=== PATIENT | female | born 1960 | race Caucasian/White ===

== ENCOUNTER → 2017-11-12 | Outpatient (CLI) | payer BC ==
--- NOTE | 2017-11-12 16:12 | KCIC ---
DATE: 11/12/2017 EXAM: MAMMO DAY SCREENING BILATERAL Bilateral digital screening mammography to include digital breast tomosynthesis (3D mammography) HISTORY: Screening study. COMPARISON: 12/07/2013 This study was interpreted with the benefit of Computerized Aided Detection (CAD). The breast parenchyma shows scattered fibroglandular densities. Breast parenchyma level B. FINDINGS: Digital MLO and CC mammograms of both breasts were obtained. Additionally digital breast tomosynthesis (3D mammography) images of both breasts in the MLO and CC projections were performed. Comparison study is dated 12/07/2013. The breast parenchyma is composed of scattered fibroglandular densities which can obscure a lesion on mammography (breast density code B). No spiculated mass is seen. No malignant appearing calcification or area of architectural distortion is noted. Benign-appearing calcifications are seen within both breasts. Digital breast tomosynthesis images demonstrate no spiculated mass or malignant appearing calcification. Since the previous examination there has been no significant interval change. IMPRESSION: BI-RADS Category 1, negative. There is no mammographic evidence of malignancy. Routine yearly screening mammography is recommended for follow-up. BI-RADS CATEGORY: 1 NEGATIVE RECOMMENDED FOLLOW-UP: 12M 12 MONTH FOLLOW-UP PQRS compliance statement: Patient information was entered into a reminder system with a target due date 11/12/2018 for the next mammogram. Mammography is a sensitive method for finding small breast cancers, but it does not detect them all and is not a substitute for careful clinical examination. A negative mammogram does not negate a clinically suspicious finding and should not result in delay in biopsying a clinically suspicious abnormality. "Our facility is accredited by the [employer] Mammography Program."
== END | disposition home or self-care (01) ==
LOC: KCIC MAMMO 10:59
PROVIDERS: ATTEND Internal Medicine
DX: Z12.31 Encounter for screening mammogram for malignant neoplasm of breast (principal)
CPT/HCPCS: 77063; G0202; 77067

== ENCOUNTER → 2018-06-21 | Outpatient (CLI) | payer BC | END | disposition home or self-care (01) | LOC: KCIC CT 14:02 | DX: R42 Dizziness and giddiness (principal); Z86.73 Personal history of transient ischemic attack (TIA), and cerebral infarction without residual deficits | CPT/HCPCS: 70450; 93880 ==

== ENCOUNTER 2018-07-08 03:03 | Inpatient (IN) | payer BC ==
[2018-07-08] VITALS (12 sets, daily range): BP systolic 109–139; BP diastolic 64–95
[~2018-07-08] VITALS: Ht 154.9 cm; Wt 64.0 kg
[2018-07-08 03:37] LABS: BASO % 0 % (0-3); EOS # 0.2 x10^3/uL (0.0-0.7); EOS % 2 % (0-3); HEMATOCRIT 35.6 % (36.0-47.0); HEMOGLOBIN 12.4 g/dL (12.0-15.5); LYMPH # 2.9 x10^3/uL (1.0-4.8); LYMPH % 39 % (24-48); MEAN CORPUSCULAR HEMOGLOBIN 31 pg (25-35); MEAN CORPUSCULAR HGB CONC 35 g/dL (31-37); MEAN CORPUSCULAR VOLUME 89 fL (79-100); MONO # 0.6 x10^3/uL (0.0-1.1); MONO % 8 % (0-9); NEUT # 3.7 x10^3uL (1.8-7.7); NEUT % 50 % (31-73); PLATELET COUNT 265 x10^3/uL (140-400); WHITE BLOOD COUNT 7.3 x10^3/uL (4.0-11.0)
[2018-07-08] MEDS ORDERED: HYDR50TA6 PO (03:40)
--- NOTE | 2018-07-08 03:53 | PHYS DOC ---
Past Medical History Past Medical History: Hypertension Smoking: Quit Greater Than 1 Year Alcohol Use: Rarely Drug Use: None Adult General Chief Complaint Chief Complaint: CHEST PAIN HPI HPI Patient is a 58-year-old female who presents to the emergency department for evaluation. Her main complaint appears to be chest pain. She states that she woke this morning with some pressure in her chest, radiating towards her back. She denies any significant pleuritic pain or shortness of breath, nausea, or vomiting. She also reports having had a severe headache earlier, which has significantly improved. She reports feeling very dizzy, described as a sense of lightheadedness. She states that she has been having strange symptoms and general malaise for the past month or so. She went to her primary care provider' s office about a month ago after just not feeling well. She was found by one of her children to be confused, and walking into [place], and somewhat disoriented. They thought she might have had a TIA or mini stroke. The patient did have a CT scan of her head about 2 weeks ago at this facility which was unremarkable, and also underwent carotid Dopplers which were unremarkable. The patient has been having intermittent symptoms of dizziness. She did just return from [place] today, by aircraft. She denies any calf pain or swelling. She states that during her episode of dizziness and chest discomfort, which awakened her from sleep, she did have some paresthesias of her left hand. She appears very emotional, especially when asking to perform neurological past with her left hand, although she is able to do so. She states she does not usually drink, but did have "one drink" at [email or web address] this evening. There are no alleviating, or exacerbating factors to her symptoms otherwise. Review of Systems Review of Systems Constitutional: Denies fever or chills [] Eyes: Denies change in visual acuity, redness, or eye pain [] HENT: Denies nasal congestion or sore throat [] Respiratory: Denies cough or shortness of breath [] Cardiovascular: No additional information not addressed in HPI [] GI: Denies abdominal pain, nausea, vomiting, bloody stools or diarrhea [] : Denies dysuria or hematuria [] Musculoskeletal: Denies back pain or joint pain [] Integument: Denies rash or skin lesions [] Neurologic: Denies focal weakness or current sensory changes [] Endocrine: Denies polyuria or polydipsia [] All other systems were reviewed and found to be within normal limits, except as documented in this note. Allergies Allergies Allergies Coded Allergies Type Severity Reaction Last Updated Verified No Known Drug Allergies 07/08/18 No Physical Exam Physical Exam PHYSICAL EXAM: CONSTITUTIONAL: Well developed, well nourished HEAD: normocephalic, atraumatic EENT: PERRL, EOMI. Conjunctivae normal color, sclerae non-icteric; moist mucous membranes. NECK: Supple, non-tender; no meningismus. LUNGS: Lungs CTA, breathing even and unlabored. Normal air movement. HEART: Regular rate and rhythm, no murmur CHEST: No deformity; non-tender ABDOMEN: The abdomen is soft, and non-tender, no masses or bruits. EXTREM: Normal ROM; no deformity, no calf tenderness. Normal pulses palpable in all extremities. There is no pedal edema. SKIN: No rash; no diaphoresis NEURO: Alert; normal speech and cognition; CN's grossly intact; strength grossly intact without focal deficit. Sensation is symmetrical and intact in all extremities. Visual leyva are intact by confrontation. Abpjrq-jbqq-xhtqci and heel cabello testing are normal. BACK: No CVA TTP. Current Patient Data Vital Signs Vital Signs Date Time Temp Pulse Resp B/P (MAP) Pulse Ox O2 Delivery O2 Flow Rate FiO2 07/08/18 03:05 98.9 89 20 148/87 (107) 99 Room Air 98.9 Lab Values Laboratory Tests Test 07/08/18 03:25 White Blood Count 7.3 x10^3/uL (4.0-11.0) Red Blood Count 4.00 x10^6/uL (3.50-5.40) Hemoglobin 12.4 g/dL (12.0-15.5) Hematocrit 35.6 % (36.0-47.0) L Mean Corpuscular Volume 89 fL (79-100) Mean Corpuscular Hemoglobin 31 pg (25-35) Mean Corpuscular Hemoglobin Concent 35 g/dL (31-37) Red Cell Distribution Width 12.0 % (11.5-14.5) Platelet Count 265 x10^3/uL (140-400) Neutrophils (%) (Auto) 50 % (31-73) Lymphocytes (%) (Auto) 39 % (24-48) Monocytes (%) (Auto) 8 % (0-9) Eosinophils (%) (Auto) 2 % (0-3) Basophils (%) (Auto) 0 % (0-3) Neutrophils # (Auto) 3.7 x10^3uL (1.8-7.7) Lymphocytes # (Auto) 2.9 x10^3/uL (1.0-4.8) Monocytes # (Auto) 0.6 x10^3/uL (0.0-1.1) Eosinophils # (Auto) 0.2 x10^3/uL (0.0-0.7) Basophils # (Auto) 0.0 x10^3/uL (0.0-0.2) D-Dimer (Nakia) 0.34 ug/mlFEU (0.00-0.50) Sodium Level 138 mmol/L (136-145) Potassium Level 4.2 mmol/L (3.5-5.1) Chloride Level 105 mmol/L (98-107) Carbon Dioxide Level 27 mmol/L (21-32) Anion Gap 6 (6-14) Blood Urea Nitrogen 20 mg/dL (7-20) Creatinine 0.9 mg/dL (0.6-1.0) Estimated GFR (Cockcroft-Gault) 64.1 BUN/Creatinine Ratio 22 (6-20) H Glucose Level 117 mg/dL (70-99) H Calcium Level 8.6 mg/dL (8.5-10.1) Magnesium Level 1.8 mg/dL (1.8-2.4) Total Bilirubin 0.3 mg/dL (0.2-1.0) Aspartate Amino Transferase (AST) 21 U/L (15-37) Alanine Aminotransferase (ALT) 21 U/L (14-59) Alkaline Phosphatase 83 U/L (46-116) Creatine Kinase 95 U/L (26-192) Creatine Kinase MB (Mass) 0.5 ng/mL (0.0-3.6) Creatine Kinase MB Relative Index 0.5 % (0-4) Troponin I Quantitative < 0.017 ng/mL (0.000-0.055) KM-Pog-T-Type Natriuretic Peptide 231 pg/mL (0-124) H Total Protein 6.7 g/dL (6.4-8.2) Albumin 3.5 g/dL (3.4-5.0) Albumin/Globulin Ratio 1.1 (1.0-1.7) Thyroid Stimulating Hormone (TSH) 5.757 uIU/mL (0.358-3.74) H Free Thyroxine 0.95 ng/dL (0.76-1.46) Ethyl Alcohol Level < 10 mg/dL (0-10) Laboratory Tests 07/08/18 03:25 Laboratory Tests 07/08/18 03:25 EKG EKG [Normal sinus rhythm with a normal rate, normal axis, normal intervals, there are no acute ischemic ST/T changes.] Radiology/Procedures Radiology/Procedures [ER physician preliminary chest x-ray interpretation: No acute disease.] PROCEDURE: CT HEAD WO CONTRAST CT head without contrast 07/08/2018 CLINICAL INDICATION: Left-sided weakness. COMPARISON: CT head 07/08/2018 technique: Multiple CT images of the head were obtained without contrast. *One or more of the following individualized dose reduction techniques were utilized for this examination: 1. Automated exposure control. 2. Adjustment of the mA and/or kV according to patient size. 3. Use of iterative reconstruction technique. FINDINGS: No acute intracranial hemorrhage or extra-axial fluid collection. No midline shift. The ortiz-white matter interfaces are maintained. Mild prominence of the ventricles and subarachnoid spaces compatible with mild generalized cerebral atrophy. The basal cisterns are patent. IMPRESSION: No acute intracranial hemorrhage. Course & Med Decision Making Course & Med Decision Making Pertinent Labs and Imaging studies reviewed. (See chart for details) [4:20 AM:The patient's condition remains stable. I spoke with the hospitalist , who accepted the patient to the hospital for further evaluation and treatment. ] Dragon Disclaimer Dragon Disclaimer This electronic medical record was generated, in whole or in part, using a voice recognition dictation system. Departure Departure Impression: Primary Impression: Chest pain Additional Impressions: Paresthesia Altered awareness, transient Disposition: 09 ADMITTED INPATIENT Admitting Physician: Vandana Moreno Condition: STABLE Referrals: ANETA GANNON MD (PCP) Problem Qualifiers AIDAN PERALES MD Jul 08, 2018 03:53
[2018-07-08 03:56] LABS: CALCIUM 8.6 mg/dL (8.5-10.1); CREATININE 0.9 mg/dL (0.6-1.0); GFR 64.1; POTASSIUM 4.2 mmol/L (3.5-5.1)
[2018-07-08 03:59] LABS: ALBUMIN 3.5 g/dL (3.4-5.0); ALBUMIN/GLOBULIN RATIO 1.1 (1.0-1.7); MAGNESIUM 1.8 mg/dL (1.8-2.4); TOTAL BILIRUBIN 0.3 mg/dL (0.2-1.0); TOTAL PROTEIN 6.7 g/dL (6.4-8.2)
[2018-07-08 04:06] LABS: FREE T4 0.95 ng/dL (0.76-1.46); THYROID STIM HORMONE (TSH) 5.757 uIU/mL (0.358-3.74)
--- NOTE | 2018-07-08 04:08 | EKG ---
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
--- NOTE | 2018-07-08 04:11 | RAD ---
CT head without contrast 07/08/2018 CLINICAL INDICATION: Left-sided weakness. COMPARISON: CT head 07/08/2018 technique: Multiple CT images of the head were obtained without contrast. *One or more of the following individualized dose reduction techniques were utilized for this examination: 1. Automated exposure control. 2. Adjustment of the mA and/or kV according to patient size. 3. Use of iterative reconstruction technique. FINDINGS: No acute intracranial hemorrhage or extra-axial fluid collection. No midline shift. The ortiz-white matter interfaces are maintained. Mild prominence of the ventricles and subarachnoid spaces compatible with mild generalized cerebral atrophy. The basal cisterns are patent. IMPRESSION: No acute intracranial hemorrhage. Electronically signed by: Javier Hart MD (07/08/2018 4:08 AM) [facility]
[2018-07-08 04:44] LABS: AMPHETAMINE/METHAMPHETAMINE NEG (NEG); BARBITURATES NEG (NEG); BENZODIAZEPINES NEG (NEG); CANNABINOIDS NEG (NEG); COCAINE NEG (NEG); METHADONE NEG (NEG); OPIATES NEG (NEG); PHENCYCLIDINE NEG (NEG)
[2018-07-08] MEDS ORDERED: ASPIRIN CHEWABLE 81 MG TABLET. PO ONE (05:15)
[2018-07-08] MEDS ORDERED: HYDR25TA9 PO (07:41)
--- NOTE | 2018-07-08 09:06 | RAD ---
EXAM: Portable AP upright view of the chest DATE: 07/08/2018 3:55 AM INDICATION: CHEST PAIN COMPARISON: No Prior FINDINGS: The heart is not enlarged. Mediastinal and hilar contours are normal. No focal parenchymal airspace opacity. No pleural effusion or pneumothorax. IMPRESSION: 1. No radiographic evidence for acute cardiopulmonary process. Electronically signed by: Jimmy Camacho MD (07/08/2018 9:02 AM) [facility]
[2018-07-08] MEDS ORDERED: LABETALOL 20 MG/4 ML DISP.SYRIN. IVP PRN (11:00)
[2018-07-08] MEDS ORDERED: ACETAMINOPHEN 500 MG TABLET PO ONE (11:00)
[2018-07-08 11:01] LABS: CHOLESTEROL/HDL RATIO 2.8
--- NOTE | 2018-07-08 11:08 | PDOC2 ---
SUMEET WHITLEY FAMILY NURSE 07/08/18 1108: CARDIAC CONSULT DATE OF CONSULT Date of Consult DATE: 07/08/18 TIME: 10:11 REASON FOR CONSULT Reason for Consult: Chest pain REFERRING PHYSICIAN Referring Physician: Yvonne SOURCE Source: Chart review, Patient HISTORY OF PRESENT ILLNESS HISTORY OF PRESENT ILLNESS This is a pleasant 58 yo female admitted for complains of ANGELA, dizziness, high BP and chest pain. She got back from [place] yesterday and went out with friends and had a light ETOH drink. She was not feeling well at that time. she went home tried to go to sleep but just end up tossing and turning. Reports that she had some banding sensation across her chest but no nausea, vomiting, diaphoresis, tremors, nor SOA. No GONZALES nor exertional CP. This improved but then started having dizziness then ANGELA and almost every time she gets dizzy she gets some loose stools. She did not take any meds for her ANGELA. Reports that with her dizziness she started having right unilateral ANGELA throbbing and sharp which then becomes bilateral then spread to her back neck and with has numbness to the dorsal part of her left hand and left shoulder with tingling to her fingertips. She took her BP and it was in the 170s/150s. Denies any palpitations and no visual disturbances but positive for right ear fullness. she felt at that time like her head was circling but denies that her surrounding was spinning or moving. She was noted to have had a confused state as well by a friend at home. She was noted last month with BP with 186/140 and was started on HCTZ and because of her neurological symptoms she was told of possible TIA and has had carotid doppler and suppose to be today she starts outpt sleep study. Her dizzy spells and potential vertigo and HAs have not been explained but it appears her symptoms is associated with high BP. Reports of 20 pound wt gain in the last 4 months. she has stopped going to the gym at that time and also has been eating about 6-7 fast food meals at least in a week. Presently still has some right side ANGELA but no dizziness. 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), TIA (?), Vertigo GI: GERD Heme/Onc: No pertinent hx Hepatobiliary: No pertinent hx Psych: No pertinent hx Musculoskeletal: Osteoarthritis Rheumatologic: No pertinent hx Infectious disease: No pertinent hx ENT: No pertinent hx Renal/: UTI (last antibiotic about 1 week ago) Endocrine: Diabetes (pre) Dermatology: No pertinent hx FAMILY HISTORY Family History: Stroke (father) SOCIAL HISTORY Smoke: Quit (2 yrs ago 4 pk yr) ALCOHOL: occassional Drugs: None Lives: Alone ALLERGIES ALLERGIES: Coded Allergies: No Known Drug Allergies (Unverified , 07/08/18) ROS Review of System 14 point ROS evaluated with pertinent positives noted per HPI PHYSICAL EXAM General: Alert, Oriented X3, Cooperative, No acute distress HEENT: Atraumatic, Mucous membr. moist/pink Lungs: Clear to auscultation, Normal air movement Heart: Regular rate (SR), Normal S1, Normal S2, No murmurs Abdomen: Soft, No tenderness Extremities: No cyanosis, No edema Skin: No breakdown, No significant lesion Neuro: Normal speech, Sensation intact Psych/Mental Status: Mental status NL, Mood NL MUSCULOSKELETAL: Osteoarthritic changes both hands VITALS VITALS Vital Signs Date Time Temp Pulse Resp B/P (MAP) Pulse Ox O2 Delivery O2 Flow Rate FiO2 07/08/18 07:25 98.1 79 16 121/71 (88) 96 Room Air 98.1 LABS Lab: Laboratory Tests Test 07/08/18 03:25 07/08/18 04:30 07/08/18 07:35 White Blood Count 7.3 x10^3/uL (4.0-11.0) Red Blood Count 4.00 x10^6/uL (3.50-5.40) Hemoglobin 12.4 g/dL (12.0-15.5) Hematocrit 35.6 % (36.0-47.0) Mean Corpuscular Volume 89 fL (79-100) Mean Corpuscular Hemoglobin 31 pg (25-35) Mean Corpuscular Hemoglobin Concent 35 g/dL (31-37) Red Cell Distribution Width 12.0 % (11.5-14.5) Platelet Count 265 x10^3/uL (140-400) Neutrophils (%) (Auto) 50 % (31-73) Lymphocytes (%) (Auto) 39 % (24-48) Monocytes (%) (Auto) 8 % (0-9) Eosinophils (%) (Auto) 2 % (0-3) Basophils (%) (Auto) 0 % (0-3) Neutrophils # (Auto) 3.7 x10^3uL (1.8-7.7) Lymphocytes # (Auto) 2.9 x10^3/uL (1.0-4.8) Monocytes # (Auto) 0.6 x10^3/uL (0.0-1.1) Eosinophils # (Auto) 0.2 x10^3/uL (0.0-0.7) Basophils # (Auto) 0.0 x10^3/uL (0.0-0.2) D-Dimer (Nakia) 0.34 ug/mlFEU (0.00-0.50) Sodium Level 138 mmol/L (136-145) Potassium Level 4.2 mmol/L (3.5-5.1) Chloride Level 105 mmol/L (98-107) Carbon Dioxide Level 27 mmol/L (21-32) Anion Gap 6 (6-14) Blood Urea Nitrogen 20 mg/dL (7-20) Creatinine 0.9 mg/dL (0.6-1.0) Estimated GFR (Cockcroft-Gault) 64.1 BUN/Creatinine Ratio 22 (6-20) Glucose Level 117 mg/dL (70-99) Calcium Level 8.6 mg/dL (8.5-10.1) Magnesium Level 1.8 mg/dL (1.8-2.4) Total Bilirubin 0.3 mg/dL (0.2-1.0) Aspartate Amino Transf (AST/SGOT) 21 U/L (15-37) Alanine Aminotransferase (ALT/SGPT) 21 U/L (14-59) Alkaline Phosphatase 83 U/L (46-116) Creatine Kinase 95 U/L (26-192) Creatine Kinase MB (Mass) 0.5 ng/mL (0.0-3.6) Creatine Kinase MB Relative Index 0.5 % (0-4) Troponin I Quantitative < 0.017 ng/mL (0.000-0.055) < 0.017 ng/mL (0.000-0.055) UU-Ioz-B-Type Natriuretic Peptide 231 pg/mL (0-124) Total Protein 6.7 g/dL (6.4-8.2) Albumin 3.5 g/dL (3.4-5.0) Albumin/Globulin Ratio 1.1 (1.0-1.7) Thyroid Stimulating Hormone (TSH) 5.757 uIU/mL (0.358-3.74) Free Thyroxine 0.95 ng/dL (0.76-1.46) Ethyl Alcohol Level < 10 mg/dL (0-10) Urine Opiates Screen Neg (NEG) Urine Methadone Screen Neg (NEG) Urine Barbiturates Neg (NEG) Urine Phencyclidine Screen Neg (NEG) Urine Amphetamine/Methamphetamine Neg (NEG) Urine Benzodiazepines Screen Neg (NEG) Urine Cocaine Screen Neg (NEG) Urine Cannabinoids Screen Neg (NEG) Urine Ethyl Alcohol Neg (NEG) ASSESSMENT/PLAN ASSESSMENT/PLAN 1. Atypical CP: troponin series normal, EKG SR without acute changes. Doubt ACS. Likely associated with uncontrolled HTN and MSK 2. Possible migraine ANGELA with aura: initially starts with dizziness progressing to right unilateral ANGELA. 3. Hypertensive encephalopathy 4. Accelerated HTN: presently controlled without antiHTN. Noted with 170s/150s at home per pt BP monitor. 5. Subclinical hypothyroidism 6. Suspect anxiety component. 7. GERD Recommendations 1. It is unclear if migraine component is contributing to periodic accelerated HTN or vise versa. TTE today. 2. Labetalol IV PRN 3. Neurology consult pending. 4. Wt gain 20 lbs in 4 months, frequent fast foods. Dietitian consult. JEFFREY DESAI MD 07/09/18 0910: CARDIAC CONSULT ASSESSMENT/PLAN ASSESSMENT/PLAN Patient seen and examined 07/08/18 (late entry). Agree with BATTERY CHARGER TESTER's assessment and plan. Chest pain with atypical features and most probably musculoskeletal Myocardial infarction has been ruled out 2-D echo showed normal LV function without any regional wall motion abnormalities Blood pressure better controlled since admission Thank you for your consultation SUMEET WHITLEY APRN Jul 08, 2018 11:08 JEFFREY DESAI MD Jul 09, 2018 09:10
--- NOTE | 2018-07-08 12:44 | CARD ---
MR#: [id number] Date of Study: 07/08/2018 Ordering Physician: SUMEET WHITLEY, Referring Physician: MIRIAN CHURCH Tech: EMERY Resendiz APPROVED REPORT EXAM: Two-dimensional and M-mode echocardiogram with Doppler and color Doppler. Other Information Quality : AverageHR: 68bpm INDICATION Hypertension/HCVD Chest Pain 2D DIMENSIONS RVDd2.9 (2.9-3.5cm)Left Atrium(2D)2.7 (1.6-4.0cm) IVSd1.0 (0.7-1.1cm)Aortic Root(2D)3.1 (2.0-3.7cm) LVDd3.8 (3.9-5.9cm)LVOT Diameter1.9 (1.8-2.4cm) PWd0.9 (0.7-1.1cm)IVSs1.4 (0.8-1.2cm) LVDs2.4 (2.5-4.0cm)FS (%) 37.4 % PWs1.4 (0.8-1.2cm)SV42.8 ml LVEF(%)68.1 (>50%) Aortic Valve AoV Peak Keegan.80.1cm/sAoV VTI17.3cm AO Peak GR.2.6mmHgLVOT Peak Keegan.70.4cm/s LVOT VTI 13.04cmAO Mean GR.2mmHg RADHA (VMAX)2.31bh3YLC (VTI)2.24cm2 Mitral Valve MV E Vmboxhtz40.4cm/sMV DECEL [id number] MV A Qcwgtruu99.6cm/sMV SCU16mg E/A Ratio1.4MVA (PHT)4.36cm2 TDI E/Lateral E'7.5E/Medial E'8.3 Pulmonary Valve PV Peak Kpygmbml90.9cm/sPV Peak Grad.2mmHg Tricuspid Valve TR P. Hukaqmqa116uz/sRAP [id number] TR Peak Gr.31rmMgORVS76ioIm Pulmonary Vein S1 Ctmjwnan24.5cm/sD2 Uhsoualb75.3cm/s LEFT VENTRICLE The left ventricle is borderline small. There is normal left ventricular wall thickness. The left randolph tricular systolic function is normal. The ejection fraction is estimated at 60-65%. There is normal L V segmental wall motion. The left ventricular diastolic function and filling is normal for age. No le ft ventricle thrombus noted on this study. RIGHT VENTRICLE The right ventricle is normal size. The right ventricular systolic function is normal. ATRIA The left atrium size is normal. The right atrium size is normal. The interatrial septum is intact wit h no evidence for an atrial septal defect or patent foramen ovale as noted on 2-D or Doppler imaging. AORTIC VALVE The aortic valve is thickened but opens well. Doppler and Color Flow revealed no significant aortic r egurgitation. There is no significant aortic valvular stenosis. There is no aortic valvular vegetatio n. MITRAL VALVE The mitral valve is mildly thickened. There is no evidence of mitral valve prolapse. There is no mitr al valve stenosis. Doppler and Color-flow revealed trace mitral regurgitation. TRICUSPID VALVE The tricuspid valve leaflets are thickened , but open well. Doppler and Color Flow revealed mild tric uspid regurgitation. The PA pressure was estimated at 24 mmHg. There is no tricuspid valve prolapse o r vegetation. There is no tricuspid valve stenosis. PULMONIC VALVE The pulmonic valve is not well visualized. Doppler and Color Flow revealed no pulmonic valvular regur gitation. There is no pulmonic valvular stenosis. GREAT VESSELS The aortic root is normal in size. The IVC is normal in size and collapses >50% with inspiration. PERICARDIAL EFFUSION There is no pleural effusion. There is no evidence of significant pericardial effusion. Critical Notification Critical Value: No <Conclusion> The left ventricular systolic function is normal. The ejection fraction is estimated at 60-65%. There is normal LV segmental wall motion. Trace mitral regurgitation. Mild tricuspid regurgitation. The PA pressure was estimated at 24 mmHg. There is no evidence of significant pericardial effusion. Signed by : Harvinder Johnson, Electronically Approved : 07/08/2018 12:42:11
[2018-07-08] MEDS ORDERED: METOPROLOL SUCC 24HR ER 25 MG TAB.ER.24H. PO ONE (14:30)
--- NOTE | 2018-07-08 14:31 | PDOC1 ---
History and Physical Date of Admission Date of Admission DATE: 07/08/18 TIME: 14:27 Identification/Chief Complaint Chief Complaint CC PRESENTED TO ER Awoke this morning with some pressure in her chest, radiating TO her back. denies any significant pleuritic pain or shortness of breath, nausea, or vomiting. reports having had a severe headache earlier, which has significantly improved. reports feeling very dizzy, described as a sense of lightheadedness. 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), TIA (?), Vertigo GI: GERD Heme/Onc: No pertinent hx Hepatobiliary: No pertinent hx Psych: No pertinent hx Musculoskeletal: Osteoarthritis Rheumatologic: No pertinent hx Infectious disease: No pertinent hx ENT: No pertinent hx Renal/: UTI (last antibiotic about 1 week ago) Endocrine: Diabetes (pre) Dermatology: No pertinent hx Past Surgical History Past Surgical History: Other Family History Family History: Stroke (father) Family History: Parent Social History Smoke: Quit (2 yrs ago 4 pk yr) ALCOHOL: occassional Drugs: None Current Problem List Problem List Problems Medical Problems: (1) Altered awareness, transient Status: Acute (2) Chest pain Status: Acute (3) Paresthesia Status: Acute Current Medications Current Medications Current Medications Aspirin (Children'S Aspirin) 324 mg 1X ONCE PO ; Start 07/08/18 at 05:15; Stop 07/08/18 at 05:16; Status DC Acetaminophen (Tylenol) 1,000 mg 1X ONCE PO Last administered on 07/08/18at 10: 57; Start 07/08/18 at 11:00; Stop 07/08/18 at 11:01; Status DC Labetalol HCl (Normodyne Iv Push) 10 mg PRN Q2HRS PRN IVP HYPERTENSION, SEE COMMENTS; Start 07/08/18 at 11:00 Active Scripts Active Reported Hydrochlorothiazide Tablet (Hydrochlorothiazide) 25 Mg Tablet 0.5 Tab PO DAILY Allergies Allergies: Coded Allergies: No Known Drug Allergies (Unverified , 07/08/18) ROS Review of System Review of Systems Review of Systems Constitutional: Denies fever or chills [] Eyes: Denies change in visual acuity, redness, or eye pain [] HENT: Denies nasal congestion or sore throat [] Respiratory: Denies cough or shortness of breath [] Cardiovascular: No additional information not addressed in HPI [] GI: Denies abdominal pain, nausea, vomiting, bloody stools or diarrhea [] : Denies dysuria or hematuria [] Musculoskeletal: Denies back pain or joint pain [] Integument: Denies rash or skin lesions [] Neurologic: Denies focal weakness or current sensory changes [] Endocrine: Denies polyuria or polydipsia [] 14 pt systems were reviewed and found to be within normal limits, except as documented Cardiovascular: yes Chest Pain Skin: No Dry Skin, No Eczema, No Hair Changes, No Lumps, No Mole Changes, No Mottling, No Nail Changes, No Pruritus, No Rash, No Skin Lesion Changes, No Other, No Acne Physical Exam Physical Exam PHYSICAL EXAM: CONSTITUTIONAL: Well developed, well nourished HEAD: normocephalic, atraumatic EENT: PERRL, EOMI. Conjunctivae normal color, sclerae non-icteric; moist mucous membranes. NECK: Supple, non-tender; no meningismus. LUNGS: Lungs CTA, breathing even and unlabored. Normal air movement. HEART: Regular rate and rhythm, no murmur CHEST: No deformity; non-tender ABDOMEN: The abdomen is soft, and non-tender, no masses or bruits. EXTREM: Normal ROM; no deformity, no calf tenderness. Normal pulses palpable in all extremities. There is no pedal edema. SKIN: No rash; no diaphoresis NEURO: Alert; normal speech and cognition; CN's grossly intact; General: No acute distress Breasts: Not examined Neuro: Cranial nerves 3-12 NL Psych/Mental Status: Mental status NL, Mood NL Vitals Vitals Vital Signs Date Time Temp Pulse Resp B/P (MAP) Pulse Ox O2 Delivery O2 Flow Rate FiO2 07/08/18 11:30 73 130/95 (107) 100 Room Air 07/08/18 11:19 20 07/08/18 11:15 98.2 98.2 Labs Labs Laboratory Tests Test 07/08/18 03:25 07/08/18 04:30 07/08/18 07:35 07/08/18 10:15 White Blood Count 7.3 x10^3/uL (4.0-11.0) Red Blood Count 4.00 x10^6/uL (3.50-5.40) Hemoglobin 12.4 g/dL (12.0-15.5) Hematocrit 35.6 % (36.0-47.0) Mean Corpuscular Volume 89 fL (79-100) Mean Corpuscular Hemoglobin 31 pg (25-35) Mean Corpuscular Hemoglobin Concent 35 g/dL (31-37) Red Cell Distribution Width 12.0 % (11.5-14.5) Platelet Count 265 x10^3/uL (140-400) Neutrophils (%) (Auto) 50 % (31-73) Lymphocytes (%) (Auto) 39 % (24-48) Monocytes (%) (Auto) 8 % (0-9) Eosinophils (%) (Auto) 2 % (0-3) Basophils (%) (Auto) 0 % (0-3) Neutrophils # (Auto) 3.7 x10^3uL (1.8-7.7) Lymphocytes # (Auto) 2.9 x10^3/uL (1.0-4.8) Monocytes # (Auto) 0.6 x10^3/uL (0.0-1.1) Eosinophils # (Auto) 0.2 x10^3/uL (0.0-0.7) Basophils # (Auto) 0.0 x10^3/uL (0.0-0.2) D-Dimer (Nakia) 0.34 ug/mlFEU (0.00-0.50) Sodium Level 138 mmol/L (136-145) Potassium Level 4.2 mmol/L (3.5-5.1) Chloride Level 105 mmol/L (98-107) Carbon Dioxide Level 27 mmol/L (21-32) Anion Gap 6 (6-14) Blood Urea Nitrogen 20 mg/dL (7-20) Creatinine 0.9 mg/dL (0.6-1.0) Estimated GFR (Cockcroft-Gault) 64.1 BUN/Creatinine Ratio 22 (6-20) Glucose Level 117 mg/dL (70-99) Calcium Level 8.6 mg/dL (8.5-10.1) Magnesium Level 1.8 mg/dL (1.8-2.4) Total Bilirubin 0.3 mg/dL (0.2-1.0) Aspartate Amino Transf (AST/SGOT) 21 U/L (15-37) Alanine Aminotransferase (ALT/SGPT) 21 U/L (14-59) Alkaline Phosphatase 83 U/L (46-116) Creatine Kinase 95 U/L (26-192) Creatine Kinase MB (Mass) 0.5 ng/mL (0.0-3.6) Creatine Kinase MB Relative Index 0.5 % (0-4) Troponin I Quantitative < 0.017 ng/mL (0.000-0.055) < 0.017 ng/mL (0.000-0.055) < 0.017 ng/mL (0.000-0.055) RD-Lxk-L-Type Natriuretic Peptide 231 pg/mL (0-124) Total Protein 6.7 g/dL (6.4-8.2) Albumin 3.5 g/dL (3.4-5.0) Albumin/Globulin Ratio 1.1 (1.0-1.7) Thyroid Stimulating Hormone (TSH) 5.757 uIU/mL (0.358-3.74) Free Thyroxine 0.95 ng/dL (0.76-1.46) Ethyl Alcohol Level < 10 mg/dL (0-10) Urine Opiates Screen Neg (NEG) Urine Methadone Screen Neg (NEG) Urine Barbiturates Neg (NEG) Urine Phencyclidine Screen Neg (NEG) Urine Amphetamine/Methamphetamine Neg (NEG) Urine Benzodiazepines Screen Neg (NEG) Urine Cocaine Screen Neg (NEG) Urine Cannabinoids Screen Neg (NEG) Urine Ethyl Alcohol Neg (NEG) Triglycerides Level 80 mg/dL (0-150) Cholesterol Level 185 mg/dL (0-200) LDL Cholesterol, Calculated 104 mg/dL (0-100) VLDL Cholesterol, Calculated 16 mg/dL (0-40) Non-HDL Cholesterol Calculated 120 mg/dL (0-129) HDL Cholesterol 65 mg/dL (40-60) Cholesterol/HDL Ratio 2.8 Laboratory Tests Test 07/08/18 03:25 07/08/18 04:30 07/08/18 07:35 07/08/18 10:15 White Blood Count 7.3 x10^3/uL (4.0-11.0) Red Blood Count 4.00 x10^6/uL (3.50-5.40) Hemoglobin 12.4 g/dL (12.0-15.5) Hematocrit 35.6 % (36.0-47.0) Mean Corpuscular Volume 89 fL (79-100) Mean Corpuscular Hemoglobin 31 pg (25-35) Mean Corpuscular Hemoglobin Concent 35 g/dL (31-37) Red Cell Distribution Width 12.0 % (11.5-14.5) Platelet Count 265 x10^3/uL (140-400) Neutrophils (%) (Auto) 50 % (31-73) Lymphocytes (%) (Auto) 39 % (24-48) Monocytes (%) (Auto) 8 % (0-9) Eosinophils (%) (Auto) 2 % (0-3) Basophils (%) (Auto) 0 % (0-3) Neutrophils # (Auto) 3.7 x10^3uL (1.8-7.7) Lymphocytes # (Auto) 2.9 x10^3/uL (1.0-4.8) Monocytes # (Auto) 0.6 x10^3/uL (0.0-1.1) Eosinophils # (Auto) 0.2 x10^3/uL (0.0-0.7) Basophils # (Auto) 0.0 x10^3/uL (0.0-0.2) D-Dimer (Nakia) 0.34 ug/mlFEU (0.00-0.50) Sodium Level 138 mmol/L (136-145) Potassium Level 4.2 mmol/L (3.5-5.1) Chloride Level 105 mmol/L (98-107) Carbon Dioxide Level 27 mmol/L (21-32) Anion Gap 6 (6-14) Blood Urea Nitrogen 20 mg/dL (7-20) Creatinine 0.9 mg/dL (0.6-1.0) Estimated GFR (Cockcroft-Gault) 64.1 BUN/Creatinine Ratio 22 (6-20) Glucose Level 117 mg/dL (70-99) Calcium Level 8.6 mg/dL (8.5-10.1) Magnesium Level 1.8 mg/dL (1.8-2.4) Total Bilirubin 0.3 mg/dL (0.2-1.0) Aspartate Amino Transf (AST/SGOT) 21 U/L (15-37) Alanine Aminotransferase (ALT/SGPT) 21 U/L (14-59) Alkaline Phosphatase 83 U/L (46-116) Creatine Kinase 95 U/L (26-192) Creatine Kinase MB (Mass) 0.5 ng/mL (0.0-3.6) Creatine Kinase MB Relative Index 0.5 % (0-4) Troponin I Quantitative < 0.017 ng/mL (0.000-0.055) < 0.017 ng/mL (0.000-0.055) < 0.017 ng/mL (0.000-0.055) HW-Qqq-V-Type Natriuretic Peptide 231 pg/mL (0-124) Total Protein 6.7 g/dL (6.4-8.2) Albumin 3.5 g/dL (3.4-5.0) Albumin/Globulin Ratio 1.1 (1.0-1.7) Thyroid Stimulating Hormone (TSH) 5.757 uIU/mL (0.358-3.74) Free Thyroxine 0.95 ng/dL (0.76-1.46) Ethyl Alcohol Level < 10 mg/dL (0-10) Urine Opiates Screen Neg (NEG) Urine Methadone Screen Neg (NEG) Urine Barbiturates Neg (NEG) Urine Phencyclidine Screen Neg (NEG) Urine Amphetamine/Methamphetamine Neg (NEG) Urine Benzodiazepines Screen Neg (NEG) Urine Cocaine Screen Neg (NEG) Urine Cannabinoids Screen Neg (NEG) Urine Ethyl Alcohol Neg (NEG) Triglycerides Level 80 mg/dL (0-150) Cholesterol Level 185 mg/dL (0-200) LDL Cholesterol, Calculated 104 mg/dL (0-100) VLDL Cholesterol, Calculated 16 mg/dL (0-40) Non-HDL Cholesterol Calculated 120 mg/dL (0-129) HDL Cholesterol 65 mg/dL (40-60) Cholesterol/HDL Ratio 2.8 VTE Prophylaxis Ordered VTE Prophylaxis Devices: No VTE Pharmacological Prophylaxi: Yes Assessment/Plan Assessment/Plan ASSESSMENT/ 1. Atypical CP: troponin series normal, EKG ok 2. migraine ANGELA with aura: 3. Hypertensive encephalopathy 4. Accelerated HTN: 5. hypothyroidism 6. anxiety 7. GERD plan 1. TTE . 2. Labetalol IV PRN 3. Neurology consult 4. tele. 5. lovenox sq dvt prophylaxis ZAC VILLELA MD Jul 08, 2018 14:31
--- NOTE | 2018-07-08 16:50 | RAD ---
MRI of the brain without contrast 07/08/2018 Clinical History: Dizziness, headaches and weakness. Technique: Unenhanced T1-weighted sagittal and axial, T2-weighted axial and coronal and FLAIR, gradient echo and diffusion-weighted axial images of the brain were obtained. Findings: There is an is made to patient's CT scan of the head performed earlier today. There is generalized parenchymal atrophy. Patchy and multiple small scattered areas of increased signal intensity are seen within the periventricular and subcortical white matter of both cerebral hemispheres on the FLAIR and T2-weighted images consistent with areas of small vessel ischemic disease. No acute parenchymal abnormality is seen. No extra-axial fluid collection is seen. There is no MRI evidence of acute ischemia/infarction. Mild mucosal thickening is seen scattered throughout the ethmoid air cells bilaterally. There are minimal bilateral mastoid effusions. Normal flow voids are seen within the major vascular structures surrounding the brain parenchyma. Impression: No acute parenchymal abnormality is seen. Electronically signed by: Te Recinos MD (07/08/2018 4:47 PM) [id number]
--- NOTE | 2018-07-08 18:06 | PDOC2 ---
NEUROLOGY CONSULT Date of Admission Date of Admission DATE: 07/08/18 TIME: 17:56 Reason for Consult Reason for Consult: IMPRESSION: Chest pain. Headache. Dizziness, recurrent. Light headiness, recurrent. Metabolic encephalopathy. Confusional episodes. Chest pain. HTN. HLD. No evidence of acute CVA this time. RECOMMENDATIONS/PLAN: EEG. Brain MRI w/o contrast. Lab: see orders. Treat medical diseases. Brain MRI: negative. HISTORY OF THE PRESENT ILLNESS: 58-y-old female patient with above medical diseases has symptoms of chest pain, headaches, dizziness, light headiness, unsteadiness to come to the ER of [facility] and she was admitted for further evaluation. She stated she had intermittent symptoms of dizziness, light headiness, unsteadiness for about 1 year but her symptoms became worse this time, so Neurology was requested for consultation. 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 Head: No traumatic brain or head injury. Skin: No edema, or rash. Ear: No infection, tinnitus. Eyes: No vision loss or color blindness. Nose: No bleeding or purulent discharges. Hearing: No hearing decrease. Neck: No injury. Breast: No history of cancer, masses,or discharges. Cardiac: HTN, HLD. Pulmonary: No COPD. GI: No GI ulcer, GI bleeding. Urinary/genital: UTI. Endocrinologic: No cousin face, craniofacial dysmorphism, polydactyly, goiter. Skeletomuscular: No muscular atrophy, deformity. Neurological: see HP. Psychiatric: Denies drug use/abuse. Otherwise, not [id number] review of systems. PHYSICAL EXAMINATION: General appearance is in no acute distress. HEENT: Normocephalic and nontraumatic. Eyes, nose, ears, and throat are unremarkable. Neck is supple. No lymphadenopathy. No bruits are heard over the carotid artery. No crepitus. Cardiovascular: S1, S2, regular rate and rhythm. Pulmonary: Clear to auscultation bilaterally. Abdomen: Bowel sounds are positive. Abdomen is soft, nontender, and nondistended. Extremities: No rash, lesions, or edema. No restriction of range of motion NEUROLOGICAL EXAMINATION: Alert Oriented to time, place and person. PERRL. EOMI. CN: no focal findings. Muscle tone: within normal. Muscle strength: 5 DTR: 2 Plantar reflex: Flexor response bilaterally Gait: not examined in bed. Sensory exam: no abnormal findings. No cerebellar signs elicited. F-T-N test accurate. Current Medications Current Medications Current Medications Aspirin (Children'S Aspirin) 324 mg 1X ONCE PO ; Start 07/08/18 at 05:15; Stop 07/08/18 at 05:16; Status DC Acetaminophen (Tylenol) 1,000 mg 1X ONCE PO Last administered on 07/08/18at 10: 57; Start 07/08/18 at 11:00; Stop 07/08/18 at 11:01; Status DC Labetalol HCl (Normodyne Iv Push) 10 mg PRN Q2HRS PRN IVP HYPERTENSION, SEE COMMENTS; Start 07/08/18 at 11:00 Metoprolol Succinate (Toprol Xl) 25 mg 1X ONCE PO Last administered on at 17:55; Start 07/08/18 at 14:30; Stop 07/08/18 at 14:32; Status DC Active Scripts Active Reported Hydrochlorothiazide Tablet (Hydrochlorothiazide) 25 Mg Tablet 0.5 Tab PO DAILY Allergies Allergies: Allergies Coded Allergies Type Severity Reaction Last Updated Verified No Known Drug Allergies 07/08/18 No ROS Review of System The patient denies any associated fevers, chills, headache, ear pain, rhinorrhea , sore throat, stiff neck, productive cough, chest pain, shortness of breath, back or flank pain, abdominal pain, nausea, vomiting, diarrhea, constipation, dysuria, rash, numbness, weakness, tingling, incontinence, difficulty ambulating, or diaphoresis. Physical Exam Physical Exam General: Well developed, well nourished, no acute distress, well appearing HEENT: Pupils equally round and reactive to light, EOMI, no discharge, normal conjunctiva Neck: Supple, no nuchal rigidity, no JVD, trachea midline, no tenderness Cardiac: RRR, no murmurs, no gallops, no rubs Chest/Lungs: CTAB, no wheeze, no rhonchi, no crackles Abdomen: soft, non-distended, no guarding, no peritoneal signs, non-tender Back: No tenderness Extremities: no edema, pulses intact, non-tender,capillary refill <3 sec bilateral upper and lower extremities, Neuro: Alert and oriented x 4, no focal deficits, normal speech Vitals Vitals: Vital Signs Date Time Temp Pulse Resp B/P (MAP) Pulse Ox O2 Delivery O2 Flow Rate FiO2 07/08/18 17:55 81 124/75 07/08/18 16:04 98.1 18 97 Room Air 98.1 Labs Labs Laboratory Tests Test 07/08/18 03:25 07/08/18 04:30 07/08/18 07:35 07/08/18 10:15 White Blood Count 7.3 x10^3/uL (4.0-11.0) Red Blood Count 4.00 x10^6/uL (3.50-5.40) Hemoglobin 12.4 g/dL (12.0-15.5) Hematocrit 35.6 % (36.0-47.0) Mean Corpuscular Volume 89 fL (79-100) Mean Corpuscular Hemoglobin 31 pg (25-35) Mean Corpuscular Hemoglobin Concent 35 g/dL (31-37) Red Cell Distribution Width 12.0 % (11.5-14.5) Platelet Count 265 x10^3/uL (140-400) Neutrophils (%) (Auto) 50 % (31-73) Lymphocytes (%) (Auto) 39 % (24-48) Monocytes (%) (Auto) 8 % (0-9) Eosinophils (%) (Auto) 2 % (0-3) Basophils (%) (Auto) 0 % (0-3) Neutrophils # (Auto) 3.7 x10^3uL (1.8-7.7) Lymphocytes # (Auto) 2.9 x10^3/uL (1.0-4.8) Monocytes # (Auto) 0.6 x10^3/uL (0.0-1.1) Eosinophils # (Auto) 0.2 x10^3/uL (0.0-0.7) Basophils # (Auto) 0.0 x10^3/uL (0.0-0.2) D-Dimer (Nakia) 0.34 ug/mlFEU (0.00-0.50) Sodium Level 138 mmol/L (136-145) Potassium Level 4.2 mmol/L (3.5-5.1) Chloride Level 105 mmol/L (98-107) Carbon Dioxide Level 27 mmol/L (21-32) Anion Gap 6 (6-14) Blood Urea Nitrogen 20 mg/dL (7-20) Creatinine 0.9 mg/dL (0.6-1.0) Estimated GFR (Cockcroft-Gault) 64.1 BUN/Creatinine Ratio 22 (6-20) Glucose Level 117 mg/dL (70-99) Calcium Level 8.6 mg/dL (8.5-10.1) Magnesium Level 1.8 mg/dL (1.8-2.4) Total Bilirubin 0.3 mg/dL (0.2-1.0) Aspartate Amino Transf (AST/SGOT) 21 U/L (15-37) Alanine Aminotransferase (ALT/SGPT) 21 U/L (14-59) Alkaline Phosphatase 83 U/L (46-116) Creatine Kinase 95 U/L (26-192) Creatine Kinase MB (Mass) 0.5 ng/mL (0.0-3.6) Creatine Kinase MB Relative Index 0.5 % (0-4) Troponin I Quantitative < 0.017 ng/mL (0.000-0.055) < 0.017 ng/mL (0.000-0.055) < 0.017 ng/mL (0.000-0.055) FF-Svk-S-Type Natriuretic Peptide 231 pg/mL (0-124) Total Protein 6.7 g/dL (6.4-8.2) Albumin 3.5 g/dL (3.4-5.0) Albumin/Globulin Ratio 1.1 (1.0-1.7) Thyroid Stimulating Hormone (TSH) 5.757 uIU/mL (0.358-3.74) Free Thyroxine 0.95 ng/dL (0.76-1.46) Ethyl Alcohol Level < 10 mg/dL (0-10) Urine Opiates Screen Neg (NEG) Urine Methadone Screen Neg (NEG) Urine Barbiturates Neg (NEG) Urine Phencyclidine Screen Neg (NEG) Urine Amphetamine/Methamphetamine Neg (NEG) Urine Benzodiazepines Screen Neg (NEG) Urine Cocaine Screen Neg (NEG) Urine Cannabinoids Screen Neg (NEG) Urine Ethyl Alcohol Neg (NEG) Triglycerides Level 80 mg/dL (0-150) Cholesterol Level 185 mg/dL (0-200) LDL Cholesterol, Calculated 104 mg/dL (0-100) VLDL Cholesterol, Calculated 16 mg/dL (0-40) Non-HDL Cholesterol Calculated 120 mg/dL (0-129) HDL Cholesterol 65 mg/dL (40-60) Cholesterol/HDL Ratio 2.8 Laboratory Tests Test 07/08/18 03:25 07/08/18 04:30 07/08/18 07:35 07/08/18 10:15 White Blood Count 7.3 x10^3/uL (4.0-11.0) Red Blood Count 4.00 x10^6/uL (3.50-5.40) Hemoglobin 12.4 g/dL (12.0-15.5) Hematocrit 35.6 % (36.0-47.0) Mean Corpuscular Volume 89 fL (79-100) Mean Corpuscular Hemoglobin 31 pg (25-35) Mean Corpuscular Hemoglobin Concent 35 g/dL (31-37) Red Cell Distribution Width 12.0 % (11.5-14.5) Platelet Count 265 x10^3/uL (140-400) Neutrophils (%) (Auto) 50 % (31-73) Lymphocytes (%) (Auto) 39 % (24-48) Monocytes (%) (Auto) 8 % (0-9) Eosinophils (%) (Auto) 2 % (0-3) Basophils (%) (Auto) 0 % (0-3) Neutrophils # (Auto) 3.7 x10^3uL (1.8-7.7) Lymphocytes # (Auto) 2.9 x10^3/uL (1.0-4.8) Monocytes # (Auto) 0.6 x10^3/uL (0.0-1.1) Eosinophils # (Auto) 0.2 x10^3/uL (0.0-0.7) Basophils # (Auto) 0.0 x10^3/uL (0.0-0.2) D-Dimer (Nakia) 0.34 ug/mlFEU (0.00-0.50) Sodium Level 138 mmol/L (136-145) Potassium Level 4.2 mmol/L (3.5-5.1) Chloride Level 105 mmol/L (98-107) Carbon Dioxide Level 27 mmol/L (21-32) Anion Gap 6 (6-14) Blood Urea Nitrogen 20 mg/dL (7-20) Creatinine 0.9 mg/dL (0.6-1.0) Estimated GFR (Cockcroft-Gault) 64.1 BUN/Creatinine Ratio 22 (6-20) Glucose Level 117 mg/dL (70-99) Calcium Level 8.6 mg/dL (8.5-10.1) Magnesium Level 1.8 mg/dL (1.8-2.4) Total Bilirubin 0.3 mg/dL (0.2-1.0) Aspartate Amino Transf (AST/SGOT) 21 U/L (15-37) Alanine Aminotransferase (ALT/SGPT) 21 U/L (14-59) Alkaline Phosphatase 83 U/L (46-116) Creatine Kinase 95 U/L (26-192) Creatine Kinase MB (Mass) 0.5 ng/mL (0.0-3.6) Creatine Kinase MB Relative Index 0.5 % (0-4) Troponin I Quantitative < 0.017 ng/mL (0.000-0.055) < 0.017 ng/mL (0.000-0.055) < 0.017 ng/mL (0.000-0.055) IP-Apt-L-Type Natriuretic Peptide 231 pg/mL (0-124) Total Protein 6.7 g/dL (6.4-8.2) Albumin 3.5 g/dL (3.4-5.0) Albumin/Globulin Ratio 1.1 (1.0-1.7) Thyroid Stimulating Hormone (TSH) 5.757 uIU/mL (0.358-3.74) Free Thyroxine 0.95 ng/dL (0.76-1.46) Ethyl Alcohol Level < 10 mg/dL (0-10) Urine Opiates Screen Neg (NEG) Urine Methadone Screen Neg (NEG) Urine Barbiturates Neg (NEG) Urine Phencyclidine Screen Neg (NEG) Urine Amphetamine/Methamphetamine Neg (NEG) Urine Benzodiazepines Screen Neg (NEG) Urine Cocaine Screen Neg (NEG) Urine Cannabinoids Screen Neg (NEG) Urine Ethyl Alcohol Neg (NEG) Triglycerides Level 80 mg/dL (0-150) Cholesterol Level 185 mg/dL (0-200) LDL Cholesterol, Calculated 104 mg/dL (0-100) VLDL Cholesterol, Calculated 16 mg/dL (0-40) Non-HDL Cholesterol Calculated 120 mg/dL (0-129) HDL Cholesterol 65 mg/dL (40-60) Cholesterol/HDL Ratio 2.8 PRABHU BROWN MD Jul 08, 2018 18:06
--- NOTE | 2018-07-08 19:21 | EEG ---
DATE OF SERVICE: 07/08/2018 EEG NUMBER: [id number]. OBJECTIVE: This is a 58-year-old female patient with history of mental status changes and confusion. EEG was requested to evaluate cerebral activity and help rule out seizure. METHODS: Twenty electrodes were applied according to the international 10-20 electrode placement system. EKG monitoring, hyperventilation, intermittent photic stimulation, monopolar and bipolar montages are routinely utilized. The record was obtained on a digital system with video monitoring. FINDINGS: 1. Background: The patient was recorded in the awake, drowsy, and sleep states. The overall background amplitude is 10-20 microvolts. A posterior dominant rhythm of 8 Hz is observed. 2. Abnormalities: No specific epileptiform discharge or electrographic seizure is seen. No focal or diffuse slowing. 3. Activation: Hyperventilation was performed with good efforts and normal response. Intermittent photic stimulation was performed with photic driving. IMPRESSION: This EEG is a normal study for the awake, drowsy, and sleep states. No focal, lateralizing, specific epileptiform discharge or electrographic seizure is seen. PRABHU BROWN MD DR: SARAH/lucia JOB#: [id number] / [id number] HA
[2018-07-08] MEDS ORDERED: diphenhydrAMINE HCL 25 MG CAPSULE PO PRN (21:15)
[2018-07-08] MEDS: hydroCHLOROthiazide 25 MG TABLET PO SCH (21:52)
[2018-07-08] MEDS ORDERED: ACETAMINOPHEN 325 MG TABLET. PO PRN (22:45)
[2018-07-09 03:34] VITALS: BP 112/62
[2018-07-09 07:47] VITALS: BP 104/65
[2018-07-09] MEDS: hydroCHLOROthiazide 25 MG TABLET PO SCH (09:45)
--- NOTE | 2018-07-09 10:40 | PDOC ---
SUMEET WHITLEY TRAFFIC REPRESENTATIVE 07/09/18 1040: CARDIO Progress Notes Date and Time Date of Service 07/09/2018 Time of Evaluation 1010 Subjective Subjective: No Chest Pain, No shortness of breath, No Palpitations, Other (ANGELA better) Vitals Vitals Vital Signs Date Time Temp Pulse Resp B/P (MAP) Pulse Ox O2 Delivery O2 Flow Rate FiO2 07/09/18 08:00 Room Air 07/09/18 07:47 98.0 61 16 104/65 (78) 97 98.0 Weight Weight [ ] Input and Output Intake and Output Intake and Output 07/09/18 07:00 Intake Total 1920 ml Balance 1920 ml Intake Oral 1920 ml # Voids 6 # Bowel Movements 1 Physical Exam HEENT: Neck Supple W Full Motion Chest: Symmetric LUNGS: Clear to Auscultation Heart: S1S2, RRR (SR) Abdomen: Soft N/T Extremities: No Edema, No Calf Tenderness Neurology: alert, oriented, follow commands Assessment Assessment 1. Atypical CP: suspect MSK with episodic uncontrolled HTN 2. Recurrent dizziness with possible migraine ANGELA with aura: better. neurology following. complains of right ear fullness, contributing otitis/effusion? 3. Hypertensive encephalopathy: resolved 4. Accelerated HTN: noted at home. BP is well controlled so far. Potentially her ANGELA symptoms may be contributing to episodic labile events. 5. Subclinical hypothyroidism 6. Suspect anxiety component. 7. GERD Recommendations 1. ANGELA is now absent and her multiple BP readings are well controlled. Currently on HCTZ but this may also promote hypotensive episodes triggering dizziness. Prior to HCTZ dose this am her BP was 104/65. Check for orthostasis, may need establish BP diary and ANGELA control regimen. Discussed focusing on DASH diet and wt loss. 2. Wt gain 20 lbs in 4 months, frequent fast foods. Dietitian consult. 3. Follow up with outpt PCP for BP check next week. JEFFREY DESAI MD 07/09/18 1340: CARDIO Progress Notes Assessment Assessment Patient seen and examined. 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 2-D echo showed normal LV function without any wall motion abnormalities Chest pain most probably musculoskeletal Blood pressure better controlled since admission Continue current medical regimen SUMEET WHITLEY APRN Jul 09, 2018 10:40 JEFFREY DESAI MD Jul 09, 2018 13:40
[2018-07-09 11:48] VITALS: BP 117/60
[2018-07-09 11:52] VITALS: BP 83/60
[2018-07-09 11:58] VITALS: BP 105/67
--- NOTE | 2018-07-09 12:39 | PDOC ---
PROGRESS NOTES Assessment Assessment Chest pain. Headache. Dizziness, recurrent. Light headiness, recurrent. Metabolic encephalopathy. Confusional episodes. Chest pain. Headaches. HTN. HLD. No evidence of acute CVA this time. RECOMMENDATIONS/PLAN: Treat medical diseases. FU with PCP. Brain MRI: negative. EEG on 07/08/18: Normal study. HISTORY OF THE PRESENT ILLNESS: 58-y-old female patient with above medical diseases has symptoms of chest pain, headaches, dizziness, light headiness, unsteadiness to come to the ER of [facility] and she was admitted for further evaluation. She stated she had intermittent symptoms of dizziness, light headiness, unsteadiness for about 1 year but her symptoms became worse this time, so Neurology was requested for consultation. No headache on 07/09. 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 Head: No traumatic brain or head injury. Skin: No edema, or rash. Ear: No infection, tinnitus. Eyes: No vision loss or color blindness. Nose: No bleeding or purulent discharges. Hearing: No hearing decrease. Neck: No injury. Breast: No history of cancer, masses,or discharges. Cardiac: HTN, HLD. Pulmonary: No COPD. GI: No GI ulcer, GI bleeding. Urinary/genital: UTI. Endocrinologic: No cousin face, craniofacial dysmorphism, polydactyly, goiter. Skeletomuscular: No muscular atrophy, deformity. Neurological: see HP. Psychiatric: Denies drug use/abuse. Otherwise, not [id number] review of systems. PHYSICAL EXAMINATION: General appearance is in no acute distress. HEENT: Normocephalic and nontraumatic. Eyes, nose, ears, and throat are unremarkable. Neck is supple. No lymphadenopathy. No bruits are heard over the carotid artery. No crepitus. Cardiovascular: S1, S2, regular rate and rhythm. Pulmonary: Clear to auscultation bilaterally. Abdomen: Bowel sounds are positive. Abdomen is soft, nontender, and nondistended. Extremities: No rash, lesions, or edema. No restriction of range of motion NEUROLOGICAL EXAMINATION: Alert Oriented to time, place and person. PERRL. EOMI. CN: no focal findings. Muscle tone: within normal. Muscle strength: 5 DTR: 2 Plantar reflex: Flexor response bilaterally Gait: Normal. Sensory exam: no abnormal findings. No cerebellar signs elicited. F-T-N test accurate. Objective Objective Vital Signs Date Time Temp Pulse Resp B/P (MAP) Pulse Ox O2 Delivery O2 Flow Rate FiO2 07/09/18 11:58 84 16 105/67 (80) 97 Room Air 07/09/18 11:48 98.1 98.1 Intake and Output 07/09/18 07:00 Intake Total 1920 ml Balance 1920 ml Intake Oral 1920 ml # Voids 6 # Bowel Movements 1 Vitals Signs Vitals VS - Last 72 Hours, by Label Date Time Temp Pulse Resp B/P (MAP) Pulse Ox O2 Delivery O2 Flow Rate FiO2 07/09/18 11:58 84 16 105/67 (80) 97 Room Air 07/09/18 11:52 87 16 83/60 (68) 97 Room Air 07/09/18 11:48 98.1 71 16 117/60 (79) 97 Room Air 98.1 07/09/18 08:00 Room Air 07/09/18 07:47 98.0 61 16 104/65 (78) 97 Room Air 98.0 07/09/18 03:34 98.0 68 16 112/62 (79) 98 Room Air 98.0 07/08/18 23:08 97.9 62 16 109/64 (79) 98 Room Air 97.9 07/08/18 20:00 Room Air 07/08/18 19:15 98.1 71 18 133/78 (96) 98 Room Air 98.1 07/08/18 17:55 81 124/75 07/08/18 16:04 98.1 87 18 119/70 (86) 97 Room Air 98.1 07/08/18 15:00 98.1 87 18 119/70 (86) 97 Room Air 98.1 07/08/18 11:30 73 130/95 (107) 100 Room Air 07/08/18 11:27 78 139/91 (107) 98 Room Air 07/08/18 11:25 68 139/87 (104) 99 Room Air 07/08/18 11:22 75 128/82 (97) 98 Room Air 07/08/18 11:19 75 20 138/90 (106) 99 Room Air 07/08/18 11:15 98.2 85 20 122/76 (91) 96 Room Air 98.2 07/08/18 07:25 98.1 79 16 121/71 (88) 96 Room Air 98.1 Medication Medications Current Medications Acetaminophen (Tylenol) 650 mg PRN Q6HRS PRN PO HEADACHE; Start 07/08/18 at 22: 45 Diphenhydramine HCl (Benadryl) 25 mg PRN QHS PRN PO INSOMNIA Last administered on 07/08/18at 21:51; Start 07/08/18 at 21:15 Hydrochlorothiazide (Hydrodiuril) 12.5 mg DAILY PO ; Start 07/10/18 at 09:00 Hydrochlorothiazide (Hydrodiuril) 25 mg DAILY PO Last administered on at 09:45; Start 07/08/18 at 21:15; Stop 07/09/18 at 10:40; Status DC Metoprolol Succinate (Toprol Xl) 25 mg 1X ONCE PO Last administered on at 17:55; Start 07/08/18 at 14:30; Stop 07/08/18 at 14:32; Status DC Comment Review of Relevant I have reviewed the following items hernan (where applicable) has been applied. PRABHU BROWN MD Jul 09, 2018 12:39
--- NOTE | 2018-07-09 13:24 | PDOC3 ---
Discharge Summary Visit Information Date of Admission: Jul 08, 2018 Date of Discharge: Jul 09, 2018 Admitting Diagnosis Comment: dizziness possibly orthostatic Dizziness with negative cardiac and neuro workup Chest pain, noncardiac, likely anxiety Final Diagnosis Problems Medical Problems: (1) Altered awareness, transient Status: Acute (2) Chest pain Status: Acute (3) Paresthesia Status: Acute Brief Hospital Course Allergies Allergies Coded Allergies Type Severity Reaction Last Updated Verified No Known Drug Allergies 07/08/18 No Vital Signs Vital Signs Date Time Temp Pulse Resp B/P (MAP) Pulse Ox O2 Delivery O2 Flow Rate FiO2 07/09/18 11:58 84 16 105/67 (80) 97 Room Air 07/09/18 11:48 98.1 98.1 Lab Results Laboratory Tests Test 07/08/18 03:25 07/08/18 04:30 07/08/18 07:35 07/08/18 10:15 White Blood Count 7.3 x10^3/uL (4.0-11.0) Red Blood Count 4.00 x10^6/uL (3.50-5.40) Hemoglobin 12.4 g/dL (12.0-15.5) Hematocrit 35.6 % (36.0-47.0) Mean Corpuscular Volume 89 fL (79-100) Mean Corpuscular Hemoglobin 31 pg (25-35) Mean Corpuscular Hemoglobin Concent 35 g/dL (31-37) Red Cell Distribution Width 12.0 % (11.5-14.5) Platelet Count 265 x10^3/uL (140-400) Neutrophils (%) (Auto) 50 % (31-73) Lymphocytes (%) (Auto) 39 % (24-48) Monocytes (%) (Auto) 8 % (0-9) Eosinophils (%) (Auto) 2 % (0-3) Basophils (%) (Auto) 0 % (0-3) Neutrophils # (Auto) 3.7 x10^3uL (1.8-7.7) Lymphocytes # (Auto) 2.9 x10^3/uL (1.0-4.8) Monocytes # (Auto) 0.6 x10^3/uL (0.0-1.1) Eosinophils # (Auto) 0.2 x10^3/uL (0.0-0.7) Basophils # (Auto) 0.0 x10^3/uL (0.0-0.2) D-Dimer (Nakia) 0.34 ug/mlFEU (0.00-0.50) Sodium Level 138 mmol/L (136-145) Potassium Level 4.2 mmol/L (3.5-5.1) Chloride Level 105 mmol/L (98-107) Carbon Dioxide Level 27 mmol/L (21-32) Anion Gap 6 (6-14) Blood Urea Nitrogen 20 mg/dL (7-20) Creatinine 0.9 mg/dL (0.6-1.0) Estimated GFR (Cockcroft-Gault) 64.1 BUN/Creatinine Ratio 22 (6-20) Glucose Level 117 mg/dL (70-99) Calcium Level 8.6 mg/dL (8.5-10.1) Magnesium Level 1.8 mg/dL (1.8-2.4) Total Bilirubin 0.3 mg/dL (0.2-1.0) Aspartate Amino Transf (AST/SGOT) 21 U/L (15-37) Alanine Aminotransferase (ALT/SGPT) 21 U/L (14-59) Alkaline Phosphatase 83 U/L (46-116) Creatine Kinase 95 U/L (26-192) Creatine Kinase MB (Mass) 0.5 ng/mL (0.0-3.6) Creatine Kinase MB Relative Index 0.5 % (0-4) Troponin I Quantitative < 0.017 ng/mL (0.000-0.055) < 0.017 ng/mL (0.000-0.055) < 0.017 ng/mL (0.000-0.055) IY-Iqy-I-Type Natriuretic Peptide 231 pg/mL (0-124) Total Protein 6.7 g/dL (6.4-8.2) Albumin 3.5 g/dL (3.4-5.0) Albumin/Globulin Ratio 1.1 (1.0-1.7) Thyroid Stimulating Hormone (TSH) 5.757 uIU/mL (0.358-3.74) Free Thyroxine 0.95 ng/dL (0.76-1.46) Ethyl Alcohol Level < 10 mg/dL (0-10) Urine Opiates Screen Neg (NEG) Urine Methadone Screen Neg (NEG) Urine Barbiturates Neg (NEG) Urine Phencyclidine Screen Neg (NEG) Urine Amphetamine/Methamphetamine Neg (NEG) Urine Benzodiazepines Screen Neg (NEG) Urine Cocaine Screen Neg (NEG) Urine Cannabinoids Screen Neg (NEG) Urine Ethyl Alcohol Neg (NEG) Triglycerides Level 80 mg/dL (0-150) Cholesterol Level 185 mg/dL (0-200) LDL Cholesterol, Calculated 104 mg/dL (0-100) VLDL Cholesterol, Calculated 16 mg/dL (0-40) Non-HDL Cholesterol Calculated 120 mg/dL (0-129) HDL Cholesterol 65 mg/dL (40-60) Cholesterol/HDL Ratio 2.8 Brief Hospital Course Ms. 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 It was noncardiac based on testing and after cardiology evaluation. Of note also is a dizziness that has been going on for couple weeks, she noted more after waking up she needed to hold to cote when going to the bathroom. Also noted after doing excessive activity or extensive activities during [employer]. Her blood pressure is a bit on the low side here, she is on HCTZ 12.5 started when her blood pressure was over 190 systolic at one point. Again her daughter is an RN and she witnessed the hTN. She did visit an ENT for this dizziness, was recommended some ear drain because of increased pressures on her right ear. CAT scans or MRI of her brain are negative but does show sinusitis. Heavy education counseling on day of discharge about a possible cause of dizziness. I did recommend H1 antagonists over the counter straight for 7-10 days. ANd Flonase when necessary to see if this will help with congestion and with the dizziness. I did recommend checking blood pressure at home, they do have a BP cuff. I did talk about orthostatic hypotension. Cardiology note did mention that she was taking HCTZ 12.5 and her blood pressure prior to the pill was 106 systolic. All these discussed with RN daughter at bedside. Discharge time greater than 30 minutes in discharge education counseling I provided all results of her scripts. I did leave an MRI for her internal auditory canal focus, but doubt any acoustic neuroma she lacks symptoms of tinnitus and hearing loss. She was wanting to go home soon. Patient discharged with no prescriptions, aside from OTC H1 antagonists and Flonase that I have recommended. Discharge Information Condition at Discharge: Improved, Stable Disposition/Orders: D/C to Home Scheduled Hydrochlorothiazide (Hydrochlorothiazide Tablet ) 25 Mg Tablet, 0.5 TAB PO DAILY, #30 Ref 5 (Reported) Entered as Reported by: COOKIE LEPE on 07/08/18740 Last Action: New Order on 07/08/18740 by COOKIE LEPE Discontinued Medications Hydrochlorothiazide (Hydrochlorothiazide Tablet) 50 Mg Tablet, 1 TAB PO DAILY, # 30 Ref 5 (Reported) Discontinued Reason: Prescription changed Entered as Reported by: ANA NULL on 07/08/18339 Last Action: New Order on 07/08/18339 by MIRIAN RAMIREZ MD Jul 09, 2018 13:24
[2018-07-10] MEDS ORDERED: hydroCHLOROthiazide 25 MG TABLET PO SCH (09:00)
== END 2018-07-09 12:50 | disposition home or self-care (01) | DRG 880 ==
LOC: ER 03:03 → 6 SOUTH 04:30
PROVIDERS: ADMIT Internal Medicine; ATTEND Internal Medicine
PROC: 4A00X4Z Measurement of Central Nervous Electrical Activity, External Approach (ICD-10-PCS; principal; 2018-07-08)
DX: F41.9 Anxiety disorder, unspecified (principal); G93.41 Metabolic encephalopathy; R07.89 Other chest pain; G43.109 Migraine with aura, not intractable, without status migrainosus; E02 Subclinical iodine-deficiency hypothyroidism; E78.5 Hyperlipidemia, unspecified; G62.9 Polyneuropathy, unspecified; M19.90 Unspecified osteoarthritis, unspecified site; R20.2 Paresthesia of skin; I10 Essential (primary) hypertension; K21.9 Gastro-esophageal reflux disease without esophagitis; Z82.3 Family history of stroke; Z87.891 Personal history of nicotine dependence; Z87.440 Personal history of urinary (tract) infections
CPT/HCPCS: 36415; 70450; 70551; 71045; 80053; 80061; 80307; 82553; 83735; 83880; 84439; 84443; 84484; 85025; 85379; 93005; 93306; 95816; G0480; Q0163; 99285-25; G0479

== ENCOUNTER → 2018-12-07 | Outpatient (CLI) | payer BC ==
[~2018-12-07] MED LIST: HYDR-2145 PO; HYDR50TA6 PO
--- NOTE | 2018-12-13 15:12 | KCIC ---
BILATERAL SCREENING MAMMOGRAM, 3-D History: Routine screening. Comparison: Bilateral mammogram 11/12/2017. Technique: MLO and CC digital tomosynthesis (3D) images obtained. Radiologist reviewed these images on dedicated workstation. Findings: Breast Tissue Density B : There are scattered areas of fibroglandular density. There are no dominant suspicious masses, suspicious microcalcifications, or architectural distortion. IMPRESSION: No mammographic evidence of malignancy. Recommend routine screening. BI-RADS category 1: Negative. The images were reviewed with computer-aided detection. Patient information is entered into reminder system with a target due date for the next screening mammogram. Mammography is the most sensitive method for finding small breast cancers, but it does not detect them all and is not a substitute for careful clinical examination. A negative mammogram does not negate a clinically suspicious finding and should not result in delay in biopsying a clinically suspicious abnormality. "Our facility is accredited by the [employer] Mammography Program." Electronically signed by: Anirudh Monroy MD (12/08/2018 6:16 PM) [id number]
== END | disposition home or self-care (01) ==
LOC: KCIC MAMMO 15:18
PROVIDERS: ATTEND Internal Medicine
DX: Z12.31 Encounter for screening mammogram for malignant neoplasm of breast (principal)
CPT/HCPCS: 77063; 77067

== ENCOUNTER → 2021-10-31 | Outpatient (CLI) | payer BC ==
[~2021-10-31] MED LIST changes: -HYDR50TA6 PO; +HYDR50TA9 PO
--- NOTE | 2021-10-31 12:27 | KCIC ---
Bilateral digital screening mammograms with 3-D tomosynthesis: Reason for examination: Routine screening. Comparison is made to previous studies dated back to 12/07/2013. Bilateral mammograms in CC and oblique projections were obtained with 2-D imaging and 3-D tomosynthes is imaging on a Siemens Inspiration unit and reviewed on the workstation. Interpretation was made wit h the benefit of CAD. The skin and nipples show no abnormalities. No abnormal axillary lymph nodes are seen. The breast par enchyma shows scattered fatty and fibroglandular density. (Breast density: Category B.) There are no dominant masses, suspicious calcifications or architectural distortion. Benign-appearing calcificatio ns are again seen. Impression: No evidence of malignancy. Recommend routine screening. BI-RAD Category 2: Benign. "Our facility is accredited by the [employer] [place] [employer] Mammography Program." This patient's information has been entered into a reminder system for the patient to be notified wit h the results of her examination and a target date for the next mammogram. Electronically signed by: Kori Wyatt MD (10/31/2021 12:25 PM) [id number]
== END ==
LOC: KCIC MAMMO 10:14
PROVIDERS: ATTEND Internal Medicine
DX: Z12.31 Encounter for screening mammogram for malignant neoplasm of breast (principal)
CPT/HCPCS: 77063; 77067